=== PATIENT | female | born 1945 | race Caucasian/White ===

== ENCOUNTER 2017-12-25 18:30 | Emergency (ER) | payer OTHER ==
[~2017-12-25] VITALS: Ht 157.5 cm; Wt 80.0 kg
[2017-12-25 18:40] VITALS: BP 177/92; PULSE 89; RESP 18; O2SAT 98
--- NOTE | 2017-12-25 18:54 | PD ---
HPI Chief Complaint: GI Complaint Time Seen by Provider: 18:37 Travel History International Travel<30 days: No Contact w/Intl Traveler<30days: No Traveled to known affect area: No History of Present Illness HPI This is a 72-year-old female with a history of chronic constipation who presents for evaluation of constipation. She reports that her last bowel movement was 3 days ago. She reports rectal pain secondary to inability to have a bowel movement. She reports some abdominal cramping but only when she attempts to have a bowel movement. No abdominal pain currently. Denies nausea , vomiting, denies fevers or chills, denies flank pain, denies dysuria. She has had constipation for 15 years. She has tried using prune juice, Dulcolax, stool softeners and magnesium citrate but the constipation persists and this is what prompted evaluation. She moved from [facility] to the [facility] 18 months ago. She reports that she followed with a typing element machine operator in [facility] in the past and was told that she has a "long colon." She has no other complaints at this time. [facility] Past Medical History Depression: Yes Diabetes: Yes Patient Takes Glucophage: No Gastrointestinal Disorders: Yes (Chronic Constipation) ?: Not Social History Alcohol Use: No Tobacco Use: No Substance Use: No Allergies-Medications (Allergen,Severity, Reaction): Coded Allergies: No Known Allergies (Unverified , 12/25/17) Reported Meds & Prescriptions Reported Meds & Active Scripts Active Golytely 236 gm (Polyethylene Glycol/Electrolytes) 4,000 Ml Soln 4,000 Ml PO ONCE Review of Systems Except as stated in HPI: all other systems reviewed are Neg Physical Exam Narrative GENERAL: Pleasant well-developed well-nourished female no acute distress SKIN: Warm and dry. HEAD: Atraumatic. Normocephalic. EYES: Pupils equal and round. No scleral icterus. No injection or drainage. ENT: No nasal bleeding or discharge. Mucous membranes pink and moist. NECK: Trachea midline. No JVD. CARDIOVASCULAR: Regular rate and rhythm. No murmur appreciated. RESPIRATORY: No accessory muscle use. Clear to auscultation. Breath sounds equal bilaterally. GASTROINTESTINAL: Abdomen soft, non-tender, nondistended. Hepatic and splenic margins not palpable. Bowel sounds positive in all 4 quadrants. Rectal examination reveals a fecal impaction. There is no external hemorrhoid or obvious anal fissure. MUSCULOSKELETAL: No obvious deformities. No clubbing. No cyanosis. No edema. NEUROLOGICAL: Awake and alert. No obvious cranial nerve deficits. Motor grossly within normal limits. Normal speech. PSYCHIATRIC: Appropriate mood and affect; insight and judgment normal. Data Data Last Documented VS Vital Signs Date Time Temp Pulse Resp B/P (MAP) Pulse Ox O2 Delivery O2 Flow Rate FiO2 12/25/17 18:40 89 18 177/92 (120) 98 Room Air Orders Orders Fleets Enema PRN (12/25/17 18:50) Fleets Enema (Adult) (Fleets Enema (Adul (12/25/17 19:00) MDM Medical Decision Making Medical Screen Exam Complete: Yes Emergency Medical Condition: Yes Medical Record Reviewed: Yes Differential Diagnosis Fecal impaction, chronic constipation, bowel obstruction Narrative Course By history this patient has chronic constipation and she currently has a fecal impaction on examination. Clinical examination is not suggestive of a bowel obstruction. The fecal impaction was manually disimpacted somewhat. An enema will be performed. The patient had a very large bowel movement after the administration of the enema. At this point time the plan will be to discharge her with GoLYTELY for her residual constipation. Recommended follow-up with primary care physician or typing element machine operator to discuss potential prescribed medication for chronic constipation. She is stable for discharge. Diagnosis Primary Impression: Chronic constipation Additional Impression: Fecal impaction Additional Instructions: Stay well hydrated and well-nourished. Follow-up with primary care physician, typing element machine operator. Return for any emergent medical conditions. Med/Other Pt SpecificInfo: Prescription(s) given Scripts Peg-Electrolytes (Golytely 236 gm) 4,000 Ml Soln 4000 ML PO ONCE for Bowel Cleanser, #1 CONTAINER 0 Refills Prov: Dioni Dallas MD 12/25/17 Disposition: 01 DISCHARGE HOME Condition: Stable Holger Son Dec 25, 2017 18:54
[2017-12-25] MEDS ORDERED: SOD PHOSPHATE/SOD BIPHOSPHATE (ADULT) ENEMA 133ML RECTAL ONE (19:00)
[2017-12-25] MEDS ORDERED: COLY4000S PO (20:46)
== END 2017-12-25 21:18 | disposition home or self-care (01) ==
LOC: NEPC 18:30
DX: K56.41 Fecal impaction (principal); E11.9 Type 2 diabetes mellitus without complications; F32.9 Major depressive disorder, single episode, unspecified
CPT/HCPCS: 99283